=== PATIENT | female | born 1975 | race American Indian/Alaskan Native ===

== ENCOUNTER 2017-11-26 00:32 | Emergency (ER) | payer MEDICAID, OTHER ==
[2017-11-26 01:10] VITALS: BP 120/79
== END 2017-11-26 02:00 | disposition left against medical advice (07) ==
LOC: ED 00:32
DX: R51 Headache (principal); Z53.21 Procedure and treatment not carried out due to patient leaving prior to being seen by health care provider

== ENCOUNTER 2019-11-07 20:00 | Emergency (ER) | payer BC, OTHER ==
[2019-11-07 20:30] VITALS: BP 153/100
[2019-11-07] MEDS ORDERED: levETIRAcetam 1000 MG/NS 0.75% 1,000 MG/100 ML BAG IV ONE (20:45)
--- NOTE | 2019-11-07 20:50 | Emergency Department Report ---
ED Seizure HPI - General Chief Complaint: Seizure Stated Complaint: SEIZURE Time Seen by Provider: 11/07/19 20:41 Source: patient Mode of arrival: Ambulatory Limitations: No Limitations - History of Present Illness Initial Comments: Patient is a 44-year-old female that presents emergency room with complaints of seizure activity. Patient brought in by EMS. Patient states she has had 2 seizures today. Patient is answering questions appropriately. Patient denies pain. Patient denies head injury. Both seizure witnessed. The first seizure was witnessed by family. The second seizure today was witnessed by EMS. EMS gave the patient Ativan and the seizure stopped. Patient states she has a neurologist and her neurologist has been adjusting her medications. Patient states her last seizure was 4 months ago. Patient states she is under a lot of stress. Patient denies chest pain. Patient denies shortness of breath. Patient has fever and chills. Patient denies cough. Patient denies recent travel. Patient denies recent international travel. Patient denies exposure to the novel coronavirus. Patient denies sick contacts. Patient denies fever and chills. Patient denies cough. Patient denies diarrhea. Patient denies coming in contact with anybody with symptoms of the novel coronavirus. Report received from EMS. EMS states that the patient had a witnessed seizure in route to the patient's house to the ER and was given 2 mg of Ativan. Patient also found to be hypoglycemic and patient was given a D5 normal saline run. Patient only had one witnessed seizure in front of EMS and had another witnessed seizure in front of her family at home. Patient had a brief postictal per EMS but is back to normal now. MD Complaint: seizure -: Sudden Description of Episode: loss of consciousness, tonic-clonic movement -: second(s) Witnessed:: Yes Trauma: No Seizure History: known seizure disorder, compliant with medication Place: home, other (With EMS) Possible Precipitating Event: lack of sleep, stress Associated Symptoms: denies: chest pain, confusion, cough, diaphoresis, fever /chills, loss of appetite, malaise, rash, shortness of breath, syncope, weakness, tongue injury, shoulder dislocation Treatments Prior to Arrival: benzodiazepines - Related Data Home Medications Medication Instructions Recorded Confirmed Last Taken ALBUTEROL Inhaler 06/08/16 07/01/12 Dicyclomine [Bentyl] PO 4XD 06/08/16 06/07/16 LORazepam [Ativan] 1 mg PO BID 06/08/16 06/08/16 06/07/16 Metoprolol [Lopressor] 25 mg PO BID 06/08/16 06/08/16 06/07/16 Omeprazole (Nf) [PriLOSEC (Nf)] PO DAILY 06/08/16 06/07/16 Ondansetron [Zofran TAB] 4 mg PO Q6H 06/08/16 06/08/16 06/07/16 traZODone [Desyrel] QHS 06/08/16 06/07/16 Allergies Allergy/AdvReac Type Severity Reaction Status Date / Time shellfish derived AdvReac VOMITING/IT Verified 09/11/15 09:18 [facility] Review of Systems ROS: Stated complaint: SEIZURE Other details as noted in HPI Constitutional: denies: chills, fever Eyes: denies: eye pain, eye discharge, vision change ENT: denies: ear pain, throat pain Respiratory: denies: cough, shortness of breath, wheezing Cardiovascular: denies: chest pain, palpitations Endocrine: no symptoms reported Gastrointestinal: denies: abdominal pain, nausea, diarrhea Genitourinary: denies: urgency, dysuria, discharge Musculoskeletal: denies: back pain, joint swelling, arthralgia Skin: denies: rash, lesions Neurological: denies: headache, weakness, paresthesias Psychiatric: denies: anxiety, depression Hematological/Lymphatic: denies: easy bleeding, easy bruising ED Past Medical Hx - Past Medical History Previous Medical History?: Yes Hx Hypertension: Yes Hx Headaches / Migraines: Yes Hx Seizures: Yes Hx Asthma: Yes Additional medical history: OBESITY - Surgical History Past Surgical History?: Yes Hx Cholecystectomy: Yes Additional Surgical History: PARTIAL HYSTERECTOMY. RIGHT ECTOPIC - Family History Family history: no significant - Social History Smoking Status: Never Smoker Substance Use Type: None - Medications Home Medications: Home Medications Medication Instructions Recorded Confirmed Last Taken Type ALBUTEROL Inhaler 06/08/16 07/01/12 History Dicyclomine [Bentyl] PO 4XD 06/08/16 06/07/16 History LORazepam [Ativan] 1 mg PO BID 06/08/16 06/08/16 06/07/16 History Metoprolol [Lopressor] 25 mg PO BID 06/08/16 06/08/16 06/07/16 History Omeprazole (Nf) [PriLOSEC (Nf)] PO DAILY 06/08/16 06/07/16 History Ondansetron [Zofran TAB] 4 mg PO Q6H 06/08/16 06/08/16 06/07/16 History traZODone [Desyrel] QHS 06/08/16 06/07/16 History ED Physical Exam - General Limitations: No Limitations General appearance: alert, in no apparent distress - Head Head exam: Present: atraumatic, normocephalic - Eye Eye exam: Present: normal appearance, PERRL, EOMI Pupils: Present: normal accommodation - ENT ENT exam: Present: mucous membranes moist - Neck Neck exam: Present: normal inspection - Respiratory Respiratory exam: Present: normal lung sounds bilaterally. Absent: respiratory distress, wheezes, rales - Cardiovascular Cardiovascular Exam: Present: regular rate, normal rhythm. Absent: systolic murmur, diastolic murmur, rubs, gallop - GI/Abdominal GI/Abdominal exam: Present: soft, normal bowel sounds. Absent: distended, tenderness, guarding - Rectal Rectal exam: Present: deferred - Extremities Exam Extremities exam: Present: normal inspection, full ROM. Absent: tenderness - Back Exam Back exam: Present: normal inspection, full ROM - Neurological Exam Neurological exam: Present: alert, oriented X3 - Psychiatric Psychiatric exam: Present: normal affect, normal mood - Skin Skin exam: Present: warm, dry, intact, normal color. Absent: rash ED Course Vital Signs 11/07/19 11/07/19 11/07/19 16:15 20:08 20:09 Temperature Pulse Rate 68 Respiratory 21 18 Rate Blood Pressure 131/78 153/100 Blood Pressure [Right] O2 Sat by Pulse 99 99 Oximetry 11/07/19 11/07/19 11/07/19 20:14 20:15 20:30 Temperature 98.8 F Pulse Rate 98 H 92 H 90 Respiratory 18 17 18 Rate Blood Pressure 131/78 146/80 Blood Pressure 153/100 [Right] O2 Sat by Pulse 100 100 96 Oximetry 11/07/19 11/07/19 11/07/19 20:45 21:19 21:30 Temperature Pulse Rate 93 H 95 H Respiratory 17 23 21 Rate Blood Pressure 146/80 146/80 134/89 Blood Pressure [Right] O2 Sat by Pulse 100 97 100 Oximetry 11/07/19 11/07/19 11/07/19 21:45 22:00 22:15 Temperature Pulse Rate 90 93 H 97 H Respiratory 20 16 21 Rate Blood Pressure 134/89 119/79 119/79 Blood Pressure [Right] O2 Sat by Pulse 100 99 83 L Oximetry 11/07/19 11/07/19 11/07/19 22:31 22:45 23:00 Temperature Pulse Rate 90 94 H 91 H Respiratory 20 20 20 Rate Blood Pressure 136/90 136/90 134/87 Blood Pressure [Right] O2 Sat by Pulse 78 L 66 L 86 Oximetry 11/07/19 23:10 Temperature 98.8 F Pulse Rate Respiratory 18 Rate Blood Pressure Blood Pressure [Right] O2 Sat by Pulse 100 Oximetry - Reevaluation(s) Reevaluation #1: Patient states she is feeling good. Patient states she just feels tired. P atient states she normally feels tired after having a seizure. Patient has not had any seizure activity in the ER. Patient denies any other complaints. I discussed results with patient. I stated the patient will have a liter of fluids prior to discharge. Patient agrees with plan of care. Patient tolerated p.o. intake. Patient instructed to continue all medications as per neurologist and primary care. We will also check the patient's blood sugar prior to discharge. I discussed all results and clinical findings with patient. I discussed plan of care with patient. Patient agrees with plan of care. Patient is stable for discharge. Patient will be discharged home. Patient given discharge instructions. Patient voiced understanding of discharge instructions. 11/07/19 22:05 ED Medical Decision Making - Lab Data Result diagrams: 11/07/19 21:06 11/07/19 21:06 - Medical Decision Making Patient is a 44-year-old female that presents emergency room with seizure. Patient has a long history of seizure. Patient does have seizure for a long time. Patient under a lot of stress at this moment. Patient was given Ativan in route for a witnessed seizure by EMS. Patient did not have any further seizure activity in the ER. Patient tolerated p.o. intake. Patient was given Keppra in the ER. Patient given fluids. Patient found to have renal insufficiency with a creatinine of 1.3. Patient stable for discharge. Patient discharged home. Patient monitored for adequate amount of time. Patient the entire time in the ER was alert and oriented x4. - Differential Diagnosis Seizure, stress reaction Critical care attestation.: If time is entered above; I have spent that time in minutes in the direct care of this critically ill patient, excluding procedure time. ED Disposition Clinical Impression: Seizure, Hypoglycemia Disposition: DC-01 TO HOME OR SELFCARE Is pt being admited?: No Does the pt Need Aspirin: No Condition: Stable Instructions: Epilepsy (ED), Recurrent Seizures Adult (ED), Women and Epilepsy (ED) Additional Instructions: Patient to follow-up with primary care in 2 to 3 days. Patient to follow-up with neurologist in 2 to 3 days. Patient to rest. Patient to increase water. Patient to avoid strenuous exercise or heavy lifting until cleared by neurologist. Patient to avoid driving. patient to take Tylenol or ibuprofen as needed for pain. Patient to continue all meds.. Patient to return to the ER if condition worsens, changes or new symptoms arise. Referrals: TRES CRUZ MD [Primary Care Provider] - 2-3 Days Time of Disposition: 22:18
[2019-11-07 21:30] LABS: Basophils # (Auto) 0.1 K/mm3 (0.0-0.1); Basophils % (Auto) 0.4 % (0.0-1.8); Eosinophils # (Auto) 0.3 K/mm3 (0.0-0.4); Eosinophils % (Auto) 2.1 % (0.0-4.3); Hematocrit 36.5 % (30.3-42.9); Hemoglobin 12.1 gm/dl (10.1-14.3); Lymphocytes # (Auto) 3.5 K/mm3 (1.2-5.4); Lymphocytes % (Auto) 28.5 % (13.4-35.0); Mean Corpuscular HGB Conc 33 % (30-34); Mean Corpuscular Volume 83 fl (79-97); Monocytes # (Auto) 0.5 K/mm3 (0.0-0.8); Monocytes % (Auto) 4.3 % (0.0-7.3); Platelet Count 357 K/mm3 (140-440); Red Blood Count 4.39 M/mm3 (3.65-5.03); Red Cell Distribution Width 17.2 % (13.2-15.2)
[2019-11-07 21:40] LABS: Bacteria,Urine 1+ /HPF (Negative); Bilirubin,Urine NEG (Negative); Blood,Urine NEG (Negative); Color,Urine Yellow (Yellow); Mucus,Urine FEW /HPF; Protein,Urine <15 mg/dL mg/dL (Negative); Urobilinogen,Urine < 2.0 mg/dL (<2.0)
[2019-11-07 21:43] LABS: HCG Qualitative,Urine Negative (Negative)
[2019-11-07 21:45] LABS: Amphetamine Screen,Urine PRESUMPTIVE NEGATIVE; Benzodiazepines Screen,Urine PRESUMPTIVE NEGATIVE; Cannabinoid Screen,Urine PRESUMPTIVE NEGATIVE; Cocaine Screen,Urine PRESUMPTIVE NEGATIVE; Methadone Screen,Urine PRESUMPTIVE NEGATIVE; Opiate Screen,Urine PRESUMPTIVE NEGATIVE
[2019-11-07 21:47] LABS: Albumin 3.9 g/dL (3.9-5); Calcium 9.4 mg/dL (8.4-10.2)
[2019-11-07] MEDS ORDERED: SODIUM CHLORIDE 0.9% 1000 ML 1,000 ML IV ONE (21:55)
== END 2019-11-07 23:12 | disposition home or self-care (01) ==
LOC: ED 20:00
DX: E16.1 Other hypoglycemia (principal); I10 Essential (primary) hypertension; G40.909 Epilepsy, unspecified, not intractable, without status epilepticus; J45.909 Unspecified asthma, uncomplicated; Z90.49 Acquired absence of other specified parts of digestive tract; Z90.710 Acquired absence of both cervix and uterus; Z91.013 Allergy to seafood
CPT/HCPCS: 36415; 80053; 80307; 81001; 81025; 82962; 85025; 96374; 99284; J1953; J7030

== ENCOUNTER 2020-03-30 19:20 | Emergency (ER) | payer BC ==
[2020-03-30 20:15] VITALS: BP 144/98
[2020-03-30 21:21] LABS: Basophils # (Auto) 0.1 K/mm3 (0.0-0.1); Basophils % (Auto) 0.9 % (0.0-1.8); Eosinophils # (Auto) 0.1 K/mm3 (0.0-0.4); Eosinophils % (Auto) 1.1 % (0.0-4.3); Hematocrit 34.7 % (30.3-42.9); Hemoglobin 11.3 gm/dl (10.1-14.3); Lymphocytes # (Auto) 3.3 K/mm3 (1.2-5.4); Lymphocytes % (Auto) 33.2 % (13.4-35.0); Mean Corpuscular HGB Conc 33 % (30-34); Mean Corpuscular Volume 83 fl (79-97); Monocytes # (Auto) 0.5 K/mm3 (0.0-0.8); Monocytes % (Auto) 5.1 % (0.0-7.3); Platelet Count 323 K/mm3 (140-440); Red Blood Count 4.18 M/mm3 (3.65-5.03); Red Cell Distribution Width 16.3 % (13.2-15.2)
[2020-03-30 21:45] LABS: Alanine Aminotransferase 9 units/L (7-56); Albumin 4.3 g/dL (3.9-5); BUN/Creatinine Ratio 13; Blood Urea Nitrogen 13 mg/dL (7-17); Calcium 9.4 mg/dL (8.4-10.2); Hemolysis Index 43
[2020-03-30 22:02] LABS: Bacteria,Urine 4+ /HPF (Negative); Bilirubin,Urine NEG (Negative); Blood,Urine NEG (Negative); Color,Urine Yellow (Yellow); Mucus,Urine 3+ /HPF; Urobilinogen,Urine < 2.0 mg/dL (<2.0)
[2020-03-31] MEDS ORDERED: IBUPROFEN 800 MG TAB PO ONE (01:41)
[2020-03-31] MEDS ORDERED: PHENAZOPYRIDINE 200 MG TAB PO ONE (01:41)
[2020-03-31] MEDS ORDERED: NITROFURANTOIN MONOHYD/M-CRYST 100 MG CAP PO ONE (01:41)
--- NOTE | 2020-03-31 02:50 | XRay Report ---
ABDOMEN 1 VIEW(S) INDICATION / CLINICAL INFORMATION: abd constipation. COMPARISON: None available. FINDINGS: TUBES / LINES: None. BOWEL GAS PATTERN/EXTRALUMINAL GAS: No dilated loops of bowel. Moderate volume of stool in the colon. No pneumatosis or secondary signs of free air. ADDITIONAL FINDINGS: Previous surgical clips suggest previous cholecystectomy. IMPRESSION: 1. Moderate constipation without acute abnormality. Signer Name: Barber Parker MD Signed: 03/31/2020 2:46 AM Workstation Name: [id number]
--- NOTE | 2020-03-31 03:25 | Emergency Department Report ---
ED Abdominal Pain HPI - General Chief Complaint: Abdominal Pain Stated Complaint: ABD PAINS Time Seen by Provider: 03/31/20 01:20 Source: patient Mode of arrival: Ambulatory Limitations: No Limitations - History of Present Illness Initial Comments: Patient is a 44-year-old -[place] female who presents for lower abdominal pain radiating to right flank x 2 days, pt denies fever or chills , does endorse urinary frequency and recurring constipation. pain is described as 4/10 intermittent. Pain is relieved by rest, pain is exacerbated by movement. pt is tolerating po intake at this time. MD Complaint: abdominal pain Severity scale (0 -10): 3 - Related Data Home Medications Medication Instructions Recorded Confirmed Last Taken ALBUTEROL Inhaler 06/08/16 07/01/12 Dicyclomine [Bentyl] PO 4XD 06/08/16 06/07/16 LORazepam [Ativan] 1 mg PO BID 06/08/16 06/08/16 06/07/16 Metoprolol [Lopressor] 25 mg PO BID 06/08/16 06/08/16 06/07/16 Omeprazole (Nf) [PriLOSEC (Nf)] PO DAILY 06/08/16 06/07/16 Ondansetron [Zofran TAB] 4 mg PO Q6H 06/08/16 06/08/16 06/07/16 traZODone [Desyrel] QHS 06/08/16 06/07/16 Previous Rx's Medication Instructions Recorded Last Taken Type Ibuprofen [Motrin 800 MG tab] 800 mg PO Q8HR PRN #30 tablet 03/31/20 Unknown Rx Nitrofurantoin [place]/M-Cryst 100 mg PO Q12HR 7 Days #14 capsule 03/31/20 Unknown Rx [Macrobid CAP] polyethylene glycoL 3350 [Miralax 17 gm PO BID PRN #14 packet 03/31/20 Unknown Rx 3350] Allergies Allergy/AdvReac Type Severity Reaction Status Date / Time shellfish derived AdvReac VOMITING/IT Verified 09/11/15 09:18 [facility] ED Review of Systems ROS: Stated complaint: ABD PAINS Other details as noted in HPI Constitutional: denies: chills, fever Eyes: denies: eye pain, eye discharge, vision change ENT: denies: ear pain, throat pain Respiratory: denies: cough, shortness of breath, wheezing Cardiovascular: denies: chest pain, palpitations Endocrine: no symptoms reported Gastrointestinal: abdominal pain, nausea, constipation. denies: vomiting, diarrhea, melena Genitourinary: denies: urgency, dysuria, discharge Musculoskeletal: denies: back pain, joint swelling, arthralgia Skin: denies: rash, lesions Neurological: denies: headache, weakness, paresthesias Psychiatric: denies: anxiety, depression Hematological/Lymphatic: denies: easy bleeding, easy bruising ED Past Medical Hx - Past Medical History Previous Medical History?: Yes Hx Hypertension: Yes Hx Headaches / Migraines: Yes Hx Seizures: Yes Hx Asthma: Yes Additional medical history: OBESITY - Surgical History Past Surgical History?: Yes Hx Cholecystectomy: Yes Additional Surgical History: PARTIAL HYSTERECTOMY. RIGHT ECTOPIC - Social History Smoking Status: Never Smoker Substance Use Type: None - Medications Home Medications: Home Medications Medication Instructions Recorded Confirmed Last Taken Type ALBUTEROL Inhaler 06/08/16 07/01/12 History Dicyclomine [Bentyl] PO 4XD 06/08/16 06/07/16 History LORazepam [Ativan] 1 mg PO BID 06/08/16 06/08/16 06/07/16 History Metoprolol [Lopressor] 25 mg PO BID 06/08/16 06/08/16 06/07/16 History Omeprazole (Nf) [PriLOSEC (Nf)] PO DAILY 06/08/16 06/07/16 History Ondansetron [Zofran TAB] 4 mg PO Q6H 06/08/16 06/08/16 06/07/16 History traZODone [Desyrel] QHS 06/08/16 06/07/16 History Ibuprofen [Motrin 800 MG tab] 800 mg PO Q8HR PRN #30 tablet 03/31/20 Unknown Rx Nitrofurantoin [place]/M-Cryst 100 mg PO Q12HR 7 Days #14 capsule 03/31/20 Unknown Rx [Macrobid CAP] polyethylene glycoL 3350 [Miralax 17 gm PO BID PRN #14 packet 03/31/20 Unknown Rx 3350] ED Physical Exam - General Limitations: No Limitations General appearance: alert, in no apparent distress - Head Head exam: Present: atraumatic, normocephalic - Eye Eye exam: Present: normal appearance, EOMI Pupils: Present: normal accommodation - ENT ENT exam: Present: mucous membranes moist - Neck Neck exam: Present: normal inspection, full ROM. Absent: tenderness - Respiratory Respiratory exam: Present: normal lung sounds bilaterally. Absent: respiratory distress, wheezes, stridor, chest wall tenderness - Cardiovascular Cardiovascular Exam: Present: regular rate, normal rhythm, normal heart sounds. Absent: systolic murmur, diastolic murmur, rubs, gallop - GI/Abdominal GI/Abdominal exam: Present: soft, distended (mildy firm), normal bowel sounds. Absent: tenderness, guarding, rebound, rigid, bruit, hernia - Rectal Rectal exam: Present: deferred - Extremities Exam Extremities exam: Present: normal inspection, full ROM, normal capillary refill. Absent: tenderness - Back Exam Back exam: Present: normal inspection, full ROM. Absent: tenderness, CVA tenderness (R), CVA tenderness (L) - Neurological Exam Neurological exam: Present: alert, CN II-XII intact, normal gait - Psychiatric Psychiatric exam: Present: normal affect, normal mood - Skin Skin exam: Present: warm, dry, intact, normal color. Absent: rash ED Course Vital Signs 03/30/20 20:12 Temperature 98.5 F Pulse Rate 83 Respiratory 18 Rate Blood Pressure 144/98 O2 Sat by Pulse 99 Oximetry ED Medical Decision Making - Lab Data Result diagrams: 03/30/20 20:47 03/30/20 20:47 Labs 03/30/20 03/30/20 03/30/20 20:47 20:47 21:10 WBC 10.0 RBC 4.18 Hgb 11.3 Hct 34.7 MCV 83 MCH 27 L MCHC 33 RDW 16.3 H Plt Count 323 Lymph % (Auto) 33.2 [place] % (Auto) 5.1 Eos % (Auto) 1.1 Baso % (Auto) 0.9 Lymph # (Auto) 3.3 [place] # (Auto) 0.5 Eos # (Auto) 0.1 Baso # (Auto) 0.1 Seg Neutrophils % 59.7 Seg Neutrophils # 6.0 Sodium 140 Potassium 4.0 Chloride 106.5 Carbon Dioxide 20 L Anion Gap 18 BUN 13 Creatinine 1.0 Estimated GFR > 60 BUN/Creatinine Ratio 13 Glucose 89 Calcium 9.4 Total Bilirubin 0.20 AST 12 ALT 9 Alkaline Phosphatase 133 H Total Protein 7.5 Albumin 4.3 Albumin/Globulin Ratio 1.3 Lipase 28 Urine Color Yellow Urine Turbidity Cloudy Urine pH 7.0 Ur Specific [place] 1.020 Urine Protein 30 mg/dl Urine Glucose (UA) Neg Urine Ketones Neg Urine Blood Neg Urine Nitrite Neg Urine Bilirubin Neg Urine Urobilinogen < 2.0 Ur Leukocyte Esterase Neg Urine WBC (Auto) 37.0 H Urine RBC (Auto) 4.0 U Epithel Cells (Auto) 2.0 Urine Bacteria (Auto) 4+ Urine WBC Clumps 2+ Urine Mucus 3+ - Radiology Data Radiology results: report reviewed, image reviewed Findings Reporting MD: Barber Parker Dictation Time: March 31, 2020 01:46 Tra nscriptionist: Not available Single End [employer]er Date: ABDOMEN 1 VIEW(S) INDICATION / CLINICAL INFORMATION: abd constipation. COMPARISON: None available. FINDINGS: TUBES / LINES: None. BOWEL GAS PATTERN/EXTRALUMINAL GAS: No dilated loops of bowel. Moderate volume of stool in the colon. No pneumatosis or secondary signs of free air. ADDITIONAL FINDINGS: Previous surgical clips suggest previous cholecystectomy. IMPRESSION: 1. Moderate constipation without acute abnormality. Signer Name: Barber Parker MD Signed: 03/31/2020 1:46 AM Workstation Name: [id number] - Medical Decision Making KUB consistent with moderate constipation, UA positive for leukocytes , bacteria RBCs plan treat for UTI , MiraLAX [id number] for constipation as needed, hydrate as directed, follow-up with PCP in 2 to 3 days. Patient verbalizes agreement and understanding with discharge plan. Patient DC'd home in stable condition at this time. Critical care attestation.: If time is entered above; I have spent that time in minutes in the direct care of this critically ill patient, excluding procedure time. ED Disposition Clinical Impression: Constipation Qualifiers: Constipation type: other constipation type Qualified Code(s): K59.09 - Other constipation UTI (urinary tract infection) Qualifiers: Urinary tract infection type: acute cystitis Hematuria presence: without hematuria Qualified Code(s): N30.00 - Acute cystitis without hematuria Disposition: DC-01 TO HOME OR SELFCARE Is pt being admited?: No Does the pt Need Aspirin: No Condition: Stable Instructions: Constipation (ED), High Fiber Diet (ED), Urinary Tract Infection in Women (ED) Prescriptions: Nitrofurantoin [place]/M-Cryst [Macrobid CAP] 100 mg PO Q12HR 7 Days #14 capsule polyethylene glycoL 3350 [Miralax 3350] 17 gm PO BID PRN #14 packet PRN Reason: Constipation Ibuprofen [Motrin 800 MG tab] 800 mg PO Q8HR PRN #30 tablet PRN Reason: pain Referrals: TRES CRUZ MD [Primary Care Provider] - 3-5 Days Forms: Work/School Release Form(ED) Time of Disposition: 03:36
== END 2020-03-31 03:45 | disposition home or self-care (01) ==
LOC: ED 19:20
DX: N39.0 Urinary tract infection, site not specified (principal); K59.00 Constipation, unspecified; I10 Essential (primary) hypertension; G43.909 Migraine, unspecified, not intractable, without status migrainosus; G40.909 Epilepsy, unspecified, not intractable, without status epilepticus; J45.909 Unspecified asthma, uncomplicated; Z90.49 Acquired absence of other specified parts of digestive tract; Z90.710 Acquired absence of both cervix and uterus; Z98.890 Other specified postprocedural states; Z79.899 Other long term (current) drug therapy; Z91.013 Allergy to seafood
CPT/HCPCS: 36415; 74018; 80053; 81001; 83690; 85025; 87086